=== PATIENT | male | born 1955 | race Hispanic/Latino ===

== ENCOUNTER 2017-04-19 11:45 | Emergency (ER) | payer MEDICARE ==
[2017-04-19] MEDS ORDERED: Sterile Water 10 ML ONE (12:18)
[2017-04-19] MEDS ORDERED: methylPREDNISolone Sod Succ/PF 125 MG/2 ML VIAL ONE (12:18)
[2017-04-19 12:24] LABS: #Basophils 0.1 thou/uL (0.0-0.2); #Eosinphils 0.2 thou/uL (0.0-0.7); #Lymphocytes 1.8 thou/uL (1.20-3.40); #Monocytes 0.7 thou/uL (0.11-0.59); #Neutrophils 8.5 thou/uL (1.40-6.50); %Basophils 0.5 % (0.0-1.0); %Lymphocytes 16.2 % (21.0-51.0); %Monocytes 5.9 % (0.0-10.0); Mean Platelet Volume 6.7 fL (7.4-10.4); Red Blood Cell (RBC) Count 4.73 mill/uL (4.70-6.10); White Blood Cell (WBC) Count 11.3 thou/uL (4.8-10.8)
[2017-04-19 12:48] LABS: Oxyhemoglobin 92.7 % (94.0-97.0); Sodium 139 mmol/L (135-148)
[2017-04-19 12:49] LABS: ALT (SGPT) 13 U/L (8-55); AST (SGOT) 14 U/L (5-34); Alkaline Phosphatase 76 U/L (40-150); Anion Gap 16 mmol/L (10-20); BUN (Urea Nitrogen) 29 mg/dL (8.4-25.7); Bilirubin, Total 0.6 mg/dL (0.2-1.2); Calc. Creatinine Clearance 0 mL/min (70-130); Calcium 9.1 mg/dL (7.8-10.44); Carbon Dioxide 29 mmol/L (23-31); Chloride 98 mmol/L (98-107); Estimated GFR-MDRD 43; Protein, Total 7.6 g/dL (5.8-8.1)
[2017-04-19 12:50] LABS: Mode 3LNC; Modified Allen's Test POSITIVE; Vent NO
[2017-04-19] MEDS ORDERED: Magnesium Sulfate 2 GM/100 ML BAG ONE (12:51)
[2017-04-19 12:53] LABS: Troponin I 0.058 ng/mL (< 0.028)
[2017-04-19] MEDS ORDERED: Magnesium 2 GM/NS 0.9% 100 ML 2 GM in Premix Bag 1 BAG IVPB SCH (13:15)
--- NOTE | 2017-04-19 13:53 | RAD ---
SINGLE VIEW OF THE CHEST 04/19/17 COMPARISON: 12/03/09 HISTORY: Shortness of breath for three days and worsening productive cough. FINDINGS: Single view of the chest shows a cardiomediastinal silhouette which is upper limits of normal in siz e. Increased interstitial markings are present. There is pleural thickening along the inferior left lateral thorax. There are opacities adjacent to this pleural thickening which could potentially repr esent focal infiltrates. IMPRESSION: 1. Pleural thickening in the left lower thorax. 2. Possible left lower lobe infiltrates. POS: [facility]
== END 2017-04-19 14:26 | disposition left against medical advice (07) ==
LOC: ERS 11:45
DX: J18.9 Pneumonia, unspecified organism (principal); R09.02 Hypoxemia; E11.9 Type 2 diabetes mellitus without complications; E78.5 Hyperlipidemia, unspecified; J44.9 Chronic obstructive pulmonary disease, unspecified; F17.210 Nicotine dependence, cigarettes, uncomplicated
CPT/HCPCS: 36415; 71010; 80053; 82553; 82805; 83880; 84484; 85025; 85379; 93005; 94640; 96365; 96375; A4216; J2930; J3475; J7620